=== PATIENT | male | born 1950 | race African-American/Black ===

== ENCOUNTER 2019-02-09 03:08 | Observation (INO) | payer OTHER ==
[~2019-02-09] VITALS: Ht 177.8 cm; Wt 83.3 kg
[~2019-02-09 03:08] MED LIST: ALBU8.5H8 INH; ASPI81TA45 PO; CEFD300C37 PO; CEFT1FRO2 IV; LEVO750T26 PO; LISI-170 PO; METO50TA82 PO; NICO-485 TD; QUET25TA5 PO; SIMV20TA PO; SIMV20TA3 PO; TRAM50TA2 PO
[2019-02-09] MEDS ORDERED: ASPIRIN 81 MG TABLET EC ONE (03:22)
[2019-02-09] MEDS ORDERED: ASPIRIN 81 MG TABLET CHEW ONE (03:24)
[2019-02-09] MEDS ORDERED: ASPIRIN 81 MG TABLET CHEW PO ONE (03:30)
--- NOTE | 2019-02-09 03:34 | NUR ---
T TO TRIAGE WITH C/O SOB AND HEADACHE X 34 HOURS WHILE WATCHING TV, WALKED 1 MILE TO ER, EKG SHOWED ST ELEVATION CODE CARDIAC CALLED
[2019-02-09 03:43] LABS: BASOPHILS # (AUTO) 0.03 x10^3/uL (0-0.1); BASOPHILS % (AUTO) 1 % (0-1); EOSINOPHILS % (AUTO) 5 % (1-7); LYMPHOCYTES # (AUTO) 2.58 x10^3/uL (1-3.4); LYMPHOCYTES % (AUTO) 44 % (22-44); MD NO; MEAN CORPUSCULAR HEMOGLOBIN 30.5 pg (27.5-34.5); MEAN CORPUSCULAR HGB CONC 33.3 g/dL (33.2-36.2); MEAN CORPUSCULAR VOLUME 91.6 fL (81-97); MEAN PLATELET VOLUME 6.8 fL (7.4-10.4); MONOCYTES # (AUTO) 0.55 x10^3/uL (0.2-0.8); MONOCYTES % (AUTO) 9 % (2-9); NEUTROPHILS # (AUTO) 2.39 x10^3/uL (1.8-6.8); NEUTROPHILS % (AUTO) 41 % (42-75); PLATELET COUNT 199 x10^3/uL (130-400)
[2019-02-09 03:56] LABS: D-DIMER 0.46 ug/mlFEU (0.00-0.52); INTERNATIONAL NORMALIZED RATIO 0.95 (0.93-1.1)
--- NOTE | 2019-02-09 03:58 | NUR ---
CODE CARDIAC CANCELED, PT IN NAD AT THIS TIME
--- NOTE | 2019-02-09 04:56 | NUR ---
Patient is resting comfortably in bed. Vital Signs within normal limits.
[2019-02-09] MEDS ORDERED: hydrALAzine 20 MG/ML, 1ML IVPush PRN (05:00)
[2019-02-09] MEDS ORDERED: OXYcodone/APAP 5/325MG TABLET PO PRN (05:00)
[2019-02-09] MEDS ORDERED: ACETAMINOPHEN 325 MG TABLET PO PRN (05:00)
[2019-02-09 05:42] LABS: TROPONIN I 0.023 ng/mL (0.000-0.045)
[2019-02-09] MEDS: ASPIRIN 325 MG TABLET PO SCH (06:30)
[2019-02-09] MEDS ORDERED: ENOXAPARIN 40 MG/0.4 ML ONE (06:32)
[2019-02-09] MEDS: ENOXAPARIN 40 MG/0.4 ML SQ SCH (06:38)
--- NOTE | 2019-02-09 06:48 | NUR ---
RECEIVED REPORT FROM CAITIE KNOX. PT SLEEPING AT THIS TIME.
--- NOTE | 2019-02-09 07:57 | NUR ---
cardiac rhythm strip printed and placed on chart.
--- NOTE | 2019-02-09 08:24 | NUR ---
PT SLEEPING AT THIS TIME. VITALS STABLE.
--- NOTE | 2019-02-09 09:33 | NUR ---
called dr. fontenot to see if pt could have a diet tray ordered. pt may have cardiac diet.
[2019-02-09] MEDS ORDERED: LISINOPRIL 10 MG TABLET ONE (09:42)
[2019-02-09] MEDS: LISINOPRIL 10 MG TABLET PO SCH (09:43)
--- NOTE | 2019-02-09 09:45 | NUR ---
PT GIVEN MEAL TRAY AND ALERT AND ORIENTED. PT GIVEN MEDICATIONS.
--- NOTE | 2019-02-09 10:45 | NUR ---
PT ATE 100% BREAKFAST.
--- NOTE | 2019-02-09 11:01 | NUR ---
TASK RN COVERING MEAL BREAK. PT SLEEPING, VSS. CALL LIGHT WITHIN REACH.
--- NOTE | 2019-02-09 11:09 | NUR ---
cardiac rhythm strip and vitals printed and placed on chart
--- NOTE | 2019-02-09 11:46 | NUR ---
PT. IS RESTING WITH THE CP MONITOR IN PLACE. HOB IS ELEVATED GREATER THAN 30 DEGREES. PT. HAS NO CONCERNS AT THIS TIME.
[2019-02-09 11:50] LABS: TROPONIN I < 0.015 ng/mL (0.000-0.045)
--- NOTE | 2019-02-09 13:51 | NUR ---
NO CHANGES AT THIS TIME.
--- NOTE | 2019-02-09 14:51 | NUR ---
assumed care of pt while primary rn on lunch break. pt resting in bed. vitals taken.
[2019-02-09 16:28] VITALS: BP 166/94
[2019-02-09 19:53] VITALS: BP_SYST 166; BP_SYST 169; BP_DIAS 77; BP_DIAS 83
[2019-02-09 21:55] VITALS: BP 177/86
[2019-02-09 23:20] VITALS: BP 148/80
[2019-02-10] VITALS (8 sets, daily range): BP systolic 141–168; BP diastolic 72–87
[2019-02-10] MEDS ORDERED: hydrALAzine 20 MG/ML, 1ML IV PRN (01:00)
[2019-02-10] MEDS: ASPIRIN 325 MG TABLET PO SCH (05:04)
[2019-02-10] MEDS: ENOXAPARIN 40 MG/0.4 ML SQ SCH (05:04)
[2019-02-10 06:09] LABS: BASOPHILS # (AUTO) 0.03 x10^3/uL (0-0.1); BASOPHILS % (AUTO) 0 % (0-1); EOSINOPHILS # (AUTO) 0.17 x10^3/uL (0-0.4); EOSINOPHILS % (AUTO) 3 % (1-7); LYMPHOCYTES # (AUTO) 1.37 x10^3/uL (1-3.4); LYMPHOCYTES % (AUTO) 21 % (22-44); MD NO; MEAN CORPUSCULAR HGB CONC 33.8 g/dL (33.2-36.2); MEAN CORPUSCULAR VOLUME 91.6 fL (81-97); MEAN PLATELET VOLUME 7.2 fL (7.4-10.4); MONOCYTES # (AUTO) 0.47 x10^3/uL (0.2-0.8); MONOCYTES % (AUTO) 7 % (2-9); NEUTROPHILS # (AUTO) 4.41 x10^3/uL (1.8-6.8); NEUTROPHILS % (AUTO) 68 % (42-75); PLATELET COUNT 190 x10^3/uL (130-400); RED BLOOD COUNT 4.75 x10^6/uL (4.38-5.82); RED CELL DISTRIBUTION WIDTH 13.9 % (9.4-14.8)
[2019-02-10 06:19] LABS: ANION GAP 6 mmol/L (5-15); CHLORIDE 105 mmol/L (98-107)
[2019-02-10 06:25] LABS: CHOL/HDL RATIO 2.7; CHOLESTEROL, TOTAL 171 mg/dL (140-239); CREATININE 0.77 mg/dL (0.7-1.3); HDL CHOL % 37 % (26-37); HDL CHOLESTEROL (DIRECT) 64 mg/dL (40-60); LDL CHOLESTEROL,CALCULATED 92 mg/dL (54-169); LDL/HDL RATIO 1.4 (0.5-3.0); TRIGLYCERIDES 74 mg/dL (50-200); VLDL CHOLESTEROL 15 mg/dL (0-25)
[2019-02-10] MEDS: LISINOPRIL 10 MG TABLET PO SCH ×2 (07:55→20:36)
[2019-02-11 00:56] VITALS: BP 155/78
[2019-02-11 05:37] LABS: ANION GAP 3 mmol/L (5-15); CALCIUM 8.1 mg/dL (8.5-10.1); CHLORIDE 106 mmol/L (98-107)
[2019-02-11 05:40] LABS: CREATININE 0.87 mg/dL (0.7-1.3)
[2019-02-11 05:53] LABS: BASOPHILS # (AUTO) 0.03 x10^3/uL (0-0.1); BASOPHILS % (AUTO) 1 % (0-1); EOSINOPHILS # (AUTO) 0.21 x10^3/uL (0-0.4); EOSINOPHILS % (AUTO) 4 % (1-7); LYMPHOCYTES # (AUTO) 1.53 x10^3/uL (1-3.4); LYMPHOCYTES % (AUTO) 31 % (22-44); MD NO; MEAN CORPUSCULAR HEMOGLOBIN 30.4 pg (27.5-34.5); MEAN CORPUSCULAR HGB CONC 33.2 g/dL (33.2-36.2); MEAN CORPUSCULAR VOLUME 91.7 fL (81-97); MONOCYTES # (AUTO) 0.55 x10^3/uL (0.2-0.8); MONOCYTES % (AUTO) 11 % (2-9); NEUTROPHILS # (AUTO) 2.58 x10^3/uL (1.8-6.8); NEUTROPHILS % (AUTO) 53 % (42-75); PLATELET COUNT 186 x10^3/uL (130-400)
[2019-02-11] MEDS: ENOXAPARIN 40 MG/0.4 ML SQ SCH (06:00)
[2019-02-11] MEDS: ASPIRIN 325 MG TABLET PO SCH (06:00)
[2019-02-11 07:00] VITALS: BP 160/80
[2019-02-11] MEDS ORDERED: REGADENOSON 0.4 MG/5 ML SYRINGE ONE (08:09)
[2019-02-11] MEDS: LISINOPRIL 10 MG TABLET PO SCH (09:19)
[2019-02-11] MEDS ORDERED: LISI-167 PO (11:15)
[2019-02-11] MEDS ORDERED: ASPI325T17 PO (11:15)
== END 2019-02-11 14:30 | disposition home or self-care (01) ==
LOC: ED 04:35 → INTOOBSV 04:40 → EDIP 04:40 → 5SO 17:09 → DCLOUNGE 02-11 14:15
PROVIDERS: ADMIT Family Medicine; ATTEND Family Medicine
DX: R06.02 Shortness of breath (principal); R06.00 Dyspnea, unspecified; I10 Essential (primary) hypertension; E78.00 Pure hypercholesterolemia, unspecified; F12.90 Cannabis use, unspecified, uncomplicated; F17.200 Nicotine dependence, unspecified, uncomplicated; I45.10 Unspecified right bundle-branch block; J44.9 Chronic obstructive pulmonary disease, unspecified; Z79.82 Long term (current) use of aspirin
CPT/HCPCS: 36415; 71045; 78452; 80047; 80048; 80061; 83880; 84484; 85025; 85379; 85610; 85730; 93005; 93017; 96372; 96374; 96376; 99284; A9502; C9898; G0378; J0360; J1650; J2785